=== PATIENT | female | born 1995 | race Caucasian/White ===

== ENCOUNTER 2018-05-08 13:47 | Emergency (ER) | payer MEDICAID ==
[2018-05-08 14:03] VITALS: BP 124/69
--- NOTE | 2018-05-08 14:40 | EDM.PDOC ---
ED HPI GENERAL MEDICAL PROBLEM - General Chief Complaint: Gastrointestinal Problem Stated Complaint: NAUSEA/ABD PAIN Time Seen by Provider: 05/08/18 14:22 Source of Information: Reports: Patient History Limitations: Reports: No Limitations - History of Present Illness INITIAL COMMENTS - FREE TEXT/NARRATIVE: 22-year-old female presents for evaluation and treatment of nausea and vomiting. Patient reports that symptoms started Saturday morning. She states that she was nauseous and vomited once. Went to sleep and symptoms improved. Saturday she did okay. Saturday, similar symptoms with nausea and vomiting in the morning but resolved after taking a quick nap. She states this morning she did feel nauseous but she did not vomit. Reports feeling improved in the evening. She has not had anything to eat today. Last intake was last night. She denies any fevers, diaphoresis, abdominal pain, cramping, dysuria, back pain, cough, ear pain, throat pain or any blood in her stools. She states that she has had looser stools. Reports her boyfriend is also having looser stools. States on Saturday and Saturday they had stake and corn on the cob, questions if this is causing her symptoms. No recent travel. No recent antibiotic usage. Last menstrual period was April 26. She's not currently on contraceptives and she is sexually act. She has been off of contraceptives for about a year. - Related Data Allergies Allergy/AdvReac Type Severity Reaction Status Date / Time No Known Allergies Allergy Verified 05/08/18 14:03 Home Meds: Home Meds Ondansetron [Zofran ODT] 4 mg PO Q6H PRN #15 tab.dis 05/08/18 [Rx] Past Medical History - Past Health History Medical/Surgical History: Denies Medical/Surgical History Social & Family History - Family History Family Medical History: Noncontributory - Tobacco Use Smoking Status *Q: Current Every Day Smoker Years of Tobacco use: 6 Packs/Tins Daily: 0.3 - Recreational Drug Use Recreational Drug Use: No ED ROS GENERAL - Review of Systems Review Of Systems: Unable To Obtain Constitutional: Reports: Chills. Denies: Fever HEENT: Denies: Ear Pain, Throat Pain Respiratory: Denies: Cough Cardiovascular: Denies: Chest Pain GI/Abdominal: Reports: Diarrhea (reports looser diarrhea like stools, having one bowel movement per day), Nausea, Vomiting. Denies: Abdominal Pain, Bloody Stool : Denies: Dysuria Musculoskeletal: Denies: Back Pain ED EXAM, GI/ABD - Physical Exam Exam: See Below Exam Limited By: No Limitations General Appearance: Alert, WD/WN, No Apparent Distress, Thin Ears: Normal External Exam Nose: Normal Inspection Throat/Mouth: Normal Inspection, Normal Lips, Normal Oropharynx, Normal Voice, No Airway Compromise Respiratory/Chest: No Respiratory Distress, Lungs Clear, Normal Breath Sounds Cardiovascular: Normal Peripheral Pulses, Regular Rate, Rhythm, No Murmur GI/Abdominal Exam: Normal Bowel Sounds, Soft, Non-Tender Neurological: Alert, Oriented, Normal Cognition Psychiatric: Normal Affect, Normal Mood Skin Exam: Warm, Dry, Normal Color Course - Vital Signs Last Recorded V/S: Last Vital Signs Temp 98.4 F 05/08/18 13:59 Pulse 58 L 05/08/18 13:59 Resp 16 05/08/18 13:59 BP 124/69 05/08/18 13:59 Pulse Ox 97 05/08/18 13:59 - Orders/Labs/Meds Orders: Active Orders 24 hr Category Date Time Status HCG QUALITATIVE,URINE [URCHEM] Stat Lab 05/08/18 14:30 Ordered UA W/MICROSCOPIC [URIN] Stat Lab 05/08/18 14:30 Ordered Labs: Laboratory Tests 05/08/18 05/08/18 Range/Units 14:09 14:09 Urine Color Yellow (Yellow) Urine Appearance Clear (Clear) Urine pH 7.5 (5.0-8.0) Ur Specific [place] 1.025 (1.005-1.030) Urine Protein 1+ H (Negative) Urine Glucose (UA) Negative (Negative) Urine Ketones 1+ H (Negative) Urine Occult Blood Negative (Negative) Urine Nitrite Negative (Negative) Urine Bilirubin Negative (Negative) Urine Urobilinogen 1.0 (0.2-1.0) Ur Leukocyte Esterase Negative (Negative) Urine RBC Not seen (0-5) /hpf Urine WBC 0-5 (0-5) /hpf Ur Epithelial Cells 10-20 H (0-5) /hpf Amorphous Sediment Many H (NOT SEEN) /hpf Urine Bacteria Few (FEW) /hpf Urine Mucus Not seen (FEW) /hpf Urine HCG, Qual Negative (NEGATIVE) - Re-Assessments/Exams Free Text/Narrative Re-Assessment/Exam: 05/08/18 15:01 Reviewed the lab results with the patient. Possibly too early to tell if he is she does not feel like she is . Will give some Zofran as needed for nausea Discharge instructions as documented. Departure - Departure Time of Disposition: 15:02 Disposition: Home, Self-Care 01 Condition: Fair Clinical Impression: Nausea & vomiting, Gastroenteritis - Discharge Information *PRESCRIPTION DRUG MONITORING PROGRAM REVIEWED*: No *COPY OF PRESCRIPTION DRUG MONITORING REPORT IN PATIENT RAMANDEEP: No Prescriptions: Ondansetron [Zofran ODT] 4 mg PO Q6H PRN #15 tab.dis PRN Reason: Nausea Referrals: PCP,None [Primary Care Provider] - Forms: ED Department Discharge Additional Instructions: Zofran 1 tab sublingual every 6-8 hours as needed for nausea. Recommend routine plenty of fluids. If you are feeling nauseous recommend bland foods such as crackers. It is too early to tell if you are today. Recommend if your menstrual cycle is late recommend taking a test. You may take 1 up to 5 days earlier if you are concerned. Follow-up with PCP if not better within 2 weeks. Please return to the ER if your symptoms change or worsen. - My Orders Last 24 Hours: My Active Orders 05/08/18 14:30 HCG QUALITATIVE,URINE [URCHEM] Stat UA W/MICROSCOPIC [URIN] Stat - Assessment/Plan Last 24 Hours: My Active Orders 05/08/18 14:30 HCG QUALITATIVE,URINE [URCHEM] Stat UA W/MICROSCOPIC [URIN] Stat
== END 2018-05-08 15:20 | disposition home or self-care (01) ==
LOC: JD.ED 13:47
DX: K52.9 Noninfective gastroenteritis and colitis, unspecified (principal); F17.210 Nicotine dependence, cigarettes, uncomplicated
CPT/HCPCS: 81001; 81025; 99283

== ENCOUNTER 2019-07-21 13:50 | Emergency (ER) | payer BC, MEDICAID ==
[2019-07-21 14:03] VITALS: BP 113/76; PULSE 76
--- NOTE | 2019-07-21 14:21 | EDM.PDOC ---
ED HPI GENERAL MEDICAL PROBLEM - General Chief Complaint: Skin Complaint Stated Complaint: BACK RASH Time Seen by Provider: 07/21/19 13:59 Source of Information: Reports: Patient, RN Notes Reviewed History Limitations: Reports: No Limitations - History of Present Illness INITIAL COMMENTS - FREE TEXT/NARRATIVE: Patient is a 23-year-old female who presents to the ED for the evaluation of a rash on her back. The patient first noticed that the rash started about 3 days ago. This started on her back, right upper shoulder area, and has spread into her right armpit. The rash itself is raised, reddened, not itchy, or not painful. The patient notes that she did start a new job, at [employer] , and has to wear a uniform. She states that the rash is only semi-painful when she moves her arm, and rubs in her armpit. She denies any other like allergic symptoms before in her life. She is never had an issue with this prior to this. She notes she did not wash the work uniform, prior to wearing it for work. Right Axillary Pain Score (Numeric/FACES): 1 - Related Data Allergies Allergy/AdvReac Type Severity Reaction Status Date / Time No Known Allergies Allergy Verified 07/21/19 14:02 Home Meds: Home Meds Triamcinolone Acetonide [Triamcinolone Acetonide 0.1% Crm] 1 applic .XX BID #15 gm 07/21/19 [Rx] predniSONE 20 mg PO ASDIRECTED #15 tab 07/21/19 [Rx] Past Medical History - Past Health History Medical/Surgical History: Denies Medical/Surgical History Social & Family History - Family History Family Medical History: Noncontributory - Tobacco Use Smoking Status *Q: Current Every Day Smoker Years of Tobacco use: 7 Packs/Tins Daily: 0.2 - Caffeine Use Caffeine Use: Reports: Soda - Recreational Drug Use Recreational Drug Use: No ED ROS GENERAL - Review of Systems Review Of Systems: See Below Constitutional: Denies: Fever, Chills HEENT: Reports: No Symptoms Respiratory: Reports: No Symptoms Cardiovascular: Reports: No Symptoms Endocrine: Reports: No Symptoms GI/Abdominal: Reports: No Symptoms, Mucous in Stool Musculoskeletal: Reports: No Symptoms Skin: Reports: Rash (see HPI) Neurological: Reports: No Symptoms Psychiatric: Reports: No Symptoms Hematologic/Lymphatic: Reports: No Symptoms Immunologic: Reports: No Symptoms ED EXAM, SKIN/RASH Exam: See Below Exam Limited By: No Limitations General Appearance: Alert, WD/WN, No Apparent Distress Throat/Mouth: Normal Inspection, Normal Lips, Normal Teeth, Normal Gums, Normal Oropharynx, Normal Voice, No Airway Compromise Head: Atraumatic, Normocephalic Respiratory/Chest: No Respiratory Distress, Lungs Clear, Normal Breath Sounds, No Accessory Muscle Use, Chest Non-Tender Cardiovascular: Normal Peripheral Pulses, Regular Rate, Rhythm, No Edema, No Murmur Peripheral Pulses: 3+: Radial (L), Radial (R) Back Exam: Full Range of Motion, Other (Rash as noted on skin exam) Extremities: Normal Inspection, Normal Range of Motion, Normal Capillary Refill Neurological: Alert, Oriented, Normal Cognition, No Motor/Sensory Deficits Psychiatric: Normal Affect, Normal Mood Skin: Warm, Dry, Intact, Normal Color, Rash (Erythematous, raised, papular rash , that looks somewhat vesicular, this is on the right shoulder blade, right axilla, and midline to right upper back.) Location, Skin: Back, Axillary Characteristics: Papular, Vesicular, Erythematous Associated features: No: Scaling, Crusting, Weeping Course - Vital Signs Last Recorded V/S: Last Vital Signs Temp 97.4 F 07/21/19 13:59 Pulse 76 07/21/19 13:59 Resp 18 07/21/19 13:59 BP 113/76 07/21/19 13:59 Pulse Ox 100 07/21/19 13:59 - Re-Assessments/Exams Free Text/Narrative Re-Assessment/Exam: 07/21/19 14:25 Patient presents to the ED for the evaluation of a rash on her back. I do suspect this to be a contact irritant type of dermatitis in nature. We'll start her on oral prednisone, and have her try some triamcinolone cream to the area. Patient was worried about the cost of the triamcinolone, I told her it would be appropriate to try [id number] hydrocortisone if she cannot afford the triamcinolone. Patient expressed understanding at this time. Departure - Departure Time of Disposition: 14:18 Disposition: Home, Self-Care 01 Condition: Fair Clinical Impression: Contact dermatitis Qualifiers: Contact dermatitis type: irritant Contact dermatitis trigger: other trigger Qualified Code(s): L24.89 - Irritant contact dermatitis due to other agents - Discharge Information *PRESCRIPTION DRUG MONITORING PROGRAM REVIEWED*: No *COPY OF PRESCRIPTION DRUG MONITORING REPORT IN PATIENT RAMANDEEP: No Prescriptions: predniSONE 20 mg PO ASDIRECTED #15 tab Triamcinolone Acetonide [Triamcinolone Acetonide 0.1% Crm] 1 applic .XX BID #15 gm Instructions: Contact Dermatitis, [id number] Referrals: PCP,None [Primary Care Provider] - Forms: ED Department Discharge Additional Instructions: You were evaluated in the ER today regarding your rash on your back. This is most likely a contact dermatitis due to your new work uniform. You have been given a prescription for prednisone, please take as directed, and a steroid cream, triamcinolone, please apply to the areas 2 times daily for further relief of these areas. This was electronically prescribed to the [place] [facility]. If this ointment/cream is to expensive, you may use [id number] hydrocortisone, anti-itch relief cream on these areas. Recommend that you wash your uniforms in your own detergent, that you know you are not allergic to, or try to wear an undershirt under your work uniform. Please return to the ED if your symptoms should change or worsen.
== END 2019-07-21 14:30 | disposition home or self-care (01) ==
LOC: JD.ED 13:50
DX: L24.89 Irritant contact dermatitis due to other agents (principal); F17.210 Nicotine dependence, cigarettes, uncomplicated
CPT/HCPCS: 99282

== ENCOUNTER 2019-11-19 17:51 | Emergency (ER) | payer SELFPAY ==
--- NOTE | 2019-11-19 18:28 | EDM.PDOC ---
ED HPI GENERAL MEDICAL PROBLEM - General Chief Complaint: Genitourinary Problem Stated Complaint: PAINFUL URINATION Time Seen by Provider: 11/19/19 18:09 Source of Information: Reports: Patient History Limitations: Reports: No Limitations - History of Present Illness INITIAL COMMENTS - FREE TEXT/NARRATIVE: Patient is a 23-year-old female who presents with complaints of urinary frequency, dysuria, and urgency for the last 3 days. Patient states that she had leftover Cipro at home and that she has been taking this twice daily for the last 2 days. She is also been using sncg-[id number] Azo for the pain. She does have a history of urinary tract infections. Denies fever, chills, nausea, vomiting, diarrhea, or back pain. Treatments MERCHANDISE PICKUP/RECEIVING ASSOCIATE: Reports: Other (see below) Other Treatments MERCHANDISE PICKUP/RECEIVING ASSOCIATE: azo-cipro Bladder Pain Score (Numeric/FACES): 8 - Related Data Allergies Allergy/AdvReac Type Severity Reaction Status Date / Time No Known Allergies Allergy Verified 07/21/19 14:02 Home Meds: Home Meds Ciprofloxacin HCl [Cipro] 500 mg PO BID 7 Days #14 tablet 11/19/19 [Rx] Past Medical History - Past Health History Medical/Surgical History: Denies Medical/Surgical History Social & Family History - Family History Family Medical History: Noncontributory - Tobacco Use Smoking Status *Q: Current Every Day Smoker Years of Tobacco use: 9 Packs/Tins Daily: 0.5 - Caffeine Use Caffeine Use: Reports: Energy Drinks, Soda - Recreational Drug Use Recreational Drug Use: No ED ROS GENERAL - Review of Systems Review Of Systems: See Below Constitutional: Denies: Fever, Chills, Weakness, Decreased Appetite HEENT: Reports: No Symptoms Respiratory: Reports: No Symptoms Cardiovascular: Reports: No Symptoms Endocrine: Reports: No Symptoms GI/Abdominal: Denies: Abdominal Pain, Diarrhea, Nausea, Vomiting : Reports: Dysuria, Frequency, Hematuria, Urgency. Denies: Flank Pain Musculoskeletal: Reports: No Symptoms. Denies: Back Pain Skin: Reports: No Symptoms Neurological: Reports: No Symptoms Psychiatric: Reports: No Symptoms Hematologic/Lymphatic: Reports: No Symptoms Immunologic: Reports: No Symptoms ED EXAM, RENAL/ - Physical Exam Exam: See Below Exam Limited By: No Limitations General Appearance: Alert, WD/WN, No Apparent Distress Respiratory/Chest: No Respiratory Distress, Lungs Clear, Normal Breath Sounds, No Accessory Muscle Use, Chest Non-Tender Cardiovascular: Normal Peripheral Pulses, Regular Rate, Rhythm, No Edema, No Gallop, No JVD, No Murmur, No Rub GI/Abdominal: Normal Bowel Sounds, Soft, Non-Tender, No Organomegaly, No Distention, No Abnormal Bruit, No Mass Back Exam: Normal Inspection, Full Range of Motion. No: CVA Tenderness (L), CVA Tenderness (R) Extremities: Normal Inspection, Normal Range of Motion, Non-Tender, Normal Capillary Refill, No Pedal Edema Neurological: Alert, Oriented, CN II-XII Intact, Normal Cognition, Normal Gait, Normal Reflexes, No Motor/Sensory Deficits Psychiatric: Normal Affect Skin Exam: Warm, Dry, Intact, Normal Color, No Rash Course - Vital Signs Last Recorded V/S: Last Vital Signs Temp 97.9 F 11/19/19 20:36 Pulse 71 11/19/19 20:36 Resp 18 11/19/19 20:36 BP 124/71 11/19/19 20:36 Pulse Ox 96 11/19/19 20:36 - Orders/Labs/Meds Orders: Active Orders 24 hr Category Date Time Status CULTURE URINE [RM] Stat Lab 11/19/19 18:10 Results Labs: Laboratory Tests 11/19/19 11/19/19 11/19/19 Range/Units 18:16 19:37 19:37 WBC 17.34 H (3.98-10.04) K/mm3 RBC 4.91 (3.98-5.22) M/mm3 Hgb 14.3 (11.2-15.7) gm/dl Hct 43.5 (34.1-44.9) % MCV 88.6 (79.4-94.8) fl MCH 29.1 (25.6-32.2) pg MCHC 32.9 (32.2-35.5) g/dl RDW Std Deviation 39.5 (36.4-46.3) fL Plt Count 396 H (182-369) K/mm3 MPV 10.0 (9.4-12.3) fl Neut % (Auto) 72.2 H (34.0-71.1) % Lymph % (Auto) 20.5 (19.3-51.7) % [place] % (Auto) 4.1 L (4.7-12.5) % Eos % (Auto) 2.9 (0.7-5.8) Baso % (Auto) 0.2 (0.1-1.2) % Neut # (Auto) 12.52 H (1.56-6.13) K/mm3 Lymph # (Auto) 3.55 (1.18-3.74) K/mm3 [place] # (Auto) 0.71 H (0.24-0.36) K/mm3 Eos # (Auto) 0.50 H (0.04-0.36) K/mm3 Baso # (Auto) 0.04 (0.01-0.08) K/mm3 Manual Slide Review Sodium 143 (136-145) mEq/L Potassium 4.1 (3.5-5.1) mEq/L Chloride 106 (98-107) mEq/L Carbon Dioxide 30 (21-32) mEq/L Anion Gap 11.1 (5-15) BUN 9 (7-18) mg/dL Creatinine 1.0 (0.55-1.02) mg/dL Est Cr Clr Drug Dosing 71.14 mL/min Estimated GFR (MDRD) > 60 (>60) mL/min BUN/Creatinine Ratio 9.0 L (14-18) Glucose 90 (74-106) mg/dL Calcium 9.6 (8.5-10.1) mg/dL Total Bilirubin 0.4 (0.2-1.0) mg/dL AST 14 L (15-37) U/L ALT 18 (14-59) U/L Alkaline Phosphatase 68 (46-116) U/L Total Protein 7.2 (6.4-8.2) g/dl Albumin 4.1 (3.4-5.0) g/dl Globulin 3.1 gm/dL Albumin/Globulin Ratio 1.3 (1-2) Urine Color Brown H (Yellow) Urine Appearance Cloudy H (Clear) Urine pH 5.0 (5.0-8.0) Ur Specific [place] 1.020 (1.005-1.030) Urine Protein 3+ H (Negative) Urine Glucose (UA) 1+ H (Negative) Urine Ketones 1+ H (Negative) Urine Occult Blood 3+ H (Negative) Urine Nitrite Positive H (Negative) Urine Bilirubin 3+ H (Negative) Urine Urobilinogen >=8.0 H (0.2-1.0) Ur Leukocyte Esterase 3+ H (Negative) Urine RBC Too numerous to cnt H (0-5) /hpf Urine WBC 5-10 H (0-5) /hpf Ur Squamous Epith Cells 0-5 (0-5) /hpf Urine Bacteria Moderate H (FEW) /hpf Urine Mucus Not seen (FEW) /hpf - Re-Assessments/Exams Free Text/Narrative Re-Assessment/Exam: 11/19/19 20:41 Hematology was significant for a WBC elevated at 17.34, as well as platelets of 396. Hematology was otherwise normal. Urinalysis was grossly positive for urinary tract infection. I will put her on Cipro and recommended increased fluid intake. We will send this electronically to [facility]. Discharge instructions as documented. Departure - Departure Time of Disposition: 20:42 Disposition: Home, Self-Care 01 Condition: Fair Clinical Impression: UTI, Urinary tract infectious disease - Discharge Information *PRESCRIPTION DRUG MONITORING PROGRAM REVIEWED*: No *COPY OF PRESCRIPTION DRUG MONITORING REPORT IN PATIENT RAMANDEEP: No Prescriptions: Ciprofloxacin HCl [Cipro] 500 mg PO BID 7 Days #14 tablet Instructions: Urinary Tract Infection, Adult Referrals: PCP,None [Primary Care Provider] - Forms: ED Department Discharge Additional Instructions: You were seen in the emergency department today for frequency, urgency, and burning with urination for the last 3 days. Your work-up included blood work as well as urinalysis. The results were positive for a urinary tract infection. A prescription for Cipro has been sent to [facility]. Take this as prescribed. Even if your symptoms resolve, continue to take the entire course of the medication. Increase your fluid intake. You may continue to use epaf-wah-gyrfrya Azo as needed for discomfort. If you should experience any worsening symptoms such as low back pain, fever, chills, nausea, or vomiting , I would recommend that you return to the emergency department to be reevaluated. Sepsis Event Note - Evaluation Sepsis Screening Result: No Definite Risk - Focused Exam Date Exam was Performed: 11/20/19 Time Exam was Performed: 12:03 - My Orders Last 24 Hours: My Active Orders 11/19/19 18:10 CULTURE URINE [RM] Stat - Assessment/Plan Last 24 Hours: My Active Orders 11/19/19 18:10 CULTURE URINE [RM] Stat
[2019-11-19 20:37] VITALS: BP 124/71; PULSE 71
== END 2019-11-19 20:57 | disposition home or self-care (01) ==
LOC: JD.ED 17:51
DX: N39.0 Urinary tract infection, site not specified (principal); F17.210 Nicotine dependence, cigarettes, uncomplicated
CPT/HCPCS: 36415; 80053; 81001; 85025; 87086; 87088; 87186; 99283

== ENCOUNTER 2020-01-03 17:00 | Emergency (ER) | payer SELFPAY ==
[2020-01-03 17:24] VITALS: BP 122/91; PULSE 72
--- NOTE | 2020-01-03 17:54 | EDM.PDOC ---
ED HPI GENERAL MEDICAL PROBLEM - General Chief Complaint: Genitourinary Problem Stated Complaint: FREQUENT URINATION AND BURNING Time Seen by Provider: 01/03/20 17:23 Source of Information: Reports: Patient History Limitations: Reports: No Limitations - History of Present Illness INITIAL COMMENTS - FREE TEXT/NARRATIVE: Tracey is a 24 year old female who presents today with dysuria, increased frequency and urgency. had a UTI recently, about one month ago. Feels this is the same. No fevers ,chills, nausea, vomiting, back pain or abdominal pain. Reports LMP was the end of November. She is sexually active, no concerns for . Bladder Pain Score (Numeric/FACES): 3 - Related Data Allergies Allergy/AdvReac Type Severity Reaction Status Date / Time No Known Allergies Allergy Verified 01/03/20 17:24 Home Meds: Home Meds . [No Known Home Meds] 01/03/20 [History] Past Medical History - Past Health History Medical/Surgical History: Denies Medical/Surgical History Social & Family History - Family History Family Medical History: Noncontributory - Tobacco Use Smoking Status *Q: Never Smoker - Caffeine Use Caffeine Use: Reports: Energy Drinks, Soda ED ROS GENERAL - Review of Systems Review Of Systems: See Below Constitutional: Denies: Fever, Chills GI/Abdominal: Denies: Nausea, Vomiting : Reports: Dysuria, Frequency, Hematuria, Urgency. Denies: Flank Pain, Irregular Menses Musculoskeletal: Denies: Back Pain ED EXAM, RENAL/ - Physical Exam Exam: See Below Exam Limited By: No Limitations General Appearance: Alert, WD/WN, No Apparent Distress Throat/Mouth: Normal Inspection Respiratory/Chest: No Respiratory Distress, Lungs Clear, Normal Breath Sounds Cardiovascular: Normal Peripheral Pulses, Regular Rate, Rhythm, No Murmur GI/Abdominal: Normal Bowel Sounds, Soft, Non-Tender Back Exam: Normal Inspection. No: CVA Tenderness (L), CVA Tenderness (R) Neurological: Alert, Oriented, Normal Cognition Psychiatric: Normal Affect, Normal Mood Skin Exam: Warm, Dry, Normal Color Course - Vital Signs Last Recorded V/S: Last Vital Signs Temp 98.0 F 01/03/20 17:19 Pulse 72 01/03/20 17:19 Resp 16 01/03/20 17: BP 122/91 H 04/19/20 17:19 Pulse Ox 99 01/03/20 17:19 - Orders/Labs/Meds Orders: Active Orders 24 hr Category Date Time Status CULTURE URINE [RM] Stat Lab 01/03/20 17:22 Received Labs: Laboratory Tests 01/03/20 Range/Units 17:22 Urine Color Brown H (Yellow) Urine Appearance Cloudy H (Clear) Urine pH 6.0 (5.0-8.0) Ur Specific [place] > or = 1.030 (1.005-1.030) Urine Protein 3+ H (Negative) Urine Glucose (UA) Negative (Negative) Urine Ketones Negative (Negative) Urine Occult Blood 3+ H (Negative) Urine Nitrite Positive H (Negative) Urine Bilirubin 1+ H (Negative) Urine Urobilinogen 1.0 (0.2-1.0) Ur Leukocyte Esterase 1+ H (Negative) Urine RBC Too numerous to cnt H (0-5) /hpf Urine WBC 40-50 H (0-5) /hpf Ur Squamous Epith Cells 5-10 H (0-5) /hpf Urine Bacteria Moderate H (FEW) /hpf Urine Mucus Not seen (FEW) /hpf - Re-Assessments/Exams Free Text/Narrative Re-Assessment/Exam: 01/03/20 17:52 Ua positive for UTI. Culture sent. Will start on macrobid bid x 7 days. Discharge instructions as documented. Departure - Departure Time of Disposition: 17:53 Disposition: Home, Self-Care 01 Condition: Good Clinical Impression: UTI, Urinary tract infectious disease - Discharge Information *PRESCRIPTION DRUG MONITORING PROGRAM REVIEWED*: No *COPY OF PRESCRIPTION DRUG MONITORING REPORT IN PATIENT RAMANDEEP: No Instructions: Urinary Tract Infection, Adult, [id number] Referrals: PCP,None [Primary Care Provider] - Forms: ED Department Discharge Additional Instructions: Macrobid 1 cap PO bid x 7 days. drink plenty of fluids. May continue with OTC cranberry pills as needed for discomfort. Please return to the ER should your symptoms change or worsen. Sepsis Event Note - Evaluation Sepsis Screening Result: No Definite Risk - Focused Exam Vital Signs: Vital Signs Temp Pulse Resp BP Pulse Ox 01/03/20 17:19 98.0 F 72 16 122/91 H 99 Date Exam was Performed: 01/03/20 Time Exam was Performed: 20:16 - My Orders Last 24 Hours: My Active Orders 01/03/20 17:22 CULTURE URINE [RM] Stat - Assessment/Plan Last 24 Hours: My Active Orders 01/03/20 17:22 CULTURE URINE [RM] Stat
== END 2020-01-03 18:00 | disposition home or self-care (01) ==
LOC: JD.ED 17:00
DX: N39.0 Urinary tract infection, site not specified (principal)
CPT/HCPCS: 81001; 87086; 87088; 99283